=== PATIENT | male | born 1975 | race Caucasian/White ===

== ENCOUNTER 2025-06-16 06:50 | Day surgery (SDC) | payer BC ==
[2025-06-16] MEDS: Lactated Ringers 1,000 ML IV SCH (07:18)
[2025-06-16 08:52] VITALS: BP 100/61; PULSE 50
== END 2025-06-16 08:38 | disposition home or self-care (01) ==
LOC: CC.SDS 06:50
PROVIDERS: ATTEND Family Medicine
DX: Z12.11 Encounter for screening for malignant neoplasm of colon (principal); Z79.899 Other long term (current) drug therapy
CPT/HCPCS: J7120